=== PATIENT | female | born 1970 | race Caucasian/White ===

== ENCOUNTER → 2020-04-10 07:40 | Outpatient (CLI) | payer OTHER, SELFPAY ==
--- NOTE | ~2020-04-10 | US_ITS ---
EXAMINATION: US right upper quadrant DATE: 04/10/2020 08:03 INDICATION: Right upper quadrant abdominal pain. TECHNIQUE: Multiple grayscale and Doppler ultrasound images of the abdomen were obtained. COMPARISON: Ultrasound 06/28/2013 FINDINGS: Abdominal aorta is normal in caliber. Inferior vena cava is normal. The visualized portions of the head and body of the pancreas are normal. The liver is normal without focal lesion. No liver surface nodularity. There is normal flow in main portal vein. The gallbladder is normal in size and c ontains sludge. No gallstones or gallbladder wall thickening. There is no sonographic Robert sign. Th e common duct is normal and measures 5 mm. Right kidney is normal. IMPRESSION: 1. Gallbladder sludge. No evidence of acute cholecystitis. Reviewed, dictated and finalized at location A. LIANCE ANALYST
== END ==
PROVIDERS: PCP Nurse Practitioner Family; Visit Provider Nurse Practitioner Family
DX: R10.11 Right upper quadrant pain (principal)
CPT/HCPCS: 76705

== ENCOUNTER 2021-07-11 01:52 | Day surgery (SDC) | payer OTHER, SELFPAY ==
[2021-06-29 14:26] VITALS: BMI 27.0
--- NOTE | 2021-07-09 12:21 | WPDANESEPPF ---
Anes - Initial Pre Proc Eval Procedure: Operation Date: 07/11/21 09:30 Proposed Procedures p Screening Colonoscopy - Sharif Wallace MD Date/Time: 07/09/21 12:21 Surgeon: Sharif Wallace MD Pre Op Diagnosis: hx of colon polyps Patient Data Age: 51 Gender: F Height: 1.65 m Weight: 73.6 kg Allergies Allergy/AdvReac Type Severity Reaction Status Date / Time No Known Allergies Allergy Verified 07/11/21 08:42 Home Medications Medication Instructions Recorded Confirmed Type citalopram 20 mg PO DAILY 06/29/21 07/11/21 History Patient hx anesthesia problems: none Family hx anesthesia problems: none Results Review: All pre-operative results and documents have been reviewed as part of the pre-operative evaluation. [facility] Past Medical History Medical History (Updated 07/09/21 @ 12:22 by Jarvis Tang DO) Anxiety Asthma Depression BERNICE (obstructive sleep apnea) Surgical History Surgical History (Updated 07/09/21 @ 12:22 by Jarvis Tang DO) History of cholecystectomy Social History Social History Smoking status: Never smoker Alcohol intake: current Drinks per week: 3 Alcohol use details: wine Substance use: never Substance use type: does not use Living arrangements: with family Spiritual care concerns: No Anes - Eval Final PreProcedure Day of Procedure 07/09/21 12:21 Patient weight: overweight Heart: regular rate and rhythm Lungs: clear to auscultation and normal air movement Airway: Mallampati scale class II Neurological: alert and oriented Last oral intake: >/= 8 hours ASA classification: III Emergent: no Anesthetic plan: proceed Anesthesia type and monitoring: general GIVS and standard monitoring Results Review: All pre-operative results and documents have been reviewed as part of the pre-operative evaluation. Informed Consent: The patient's anesthetic plan and its attendant risks and benefits were discussed with the patient/family/POA. Questions were solicited and answers provided to the satisfaction of the patient/family/POA.
[2021-07-11 08:43] VITALS: BP 125/64; PULSE 80; RESP 16; TEMP 36.4; O2SAT 100
[2021-07-11] MEDS: LACTATED RINGERS 1,000 ML 150 ML IV CONT (08:54)
--- NOTE | 2021-07-11 09:02 | PM.HPGS ---
History of Present Illness History of Present Illness Consent: Risks, benefits, and alternatives have been discussed and questions answered. Patient agrees to proceed with procedure. Chief complaint: hx of colon polyps Narrative: Lorraine Maurer is a 51 year old female referred for colon cancer screening. She has a history of polyps having 3 polyps removed about 4 years ago Review of Systems Review of Systems: All systems reviewed & are unremarkable except as noted in HPI and below PMFSH Past Medical History Medical History Anxiety Asthma Depression BERNICE (obstructive sleep apnea) Surgical History Surgical History History of cholecystectomy Social History Social History Smoking status: Never smoker Alcohol intake: current Drinks per week: 3 Alcohol use details: wine Substance use: never Substance use type: does not use Living arrangements: with family Spiritual care concerns: No Meds Home Medications and Allergies Home Medications Medication Instructions Recorded Confirmed Type citalopram 20 mg PO DAILY 06/29/21 07/11/21 History Allergies Allergy/AdvReac Type Severity Reaction Status Date / Time No Known Allergies Allergy Verified 07/11/21 08:42 Vital Signs Vital Signs - 24 hr 07/11/21 08:43 Temperature 36.4 C L Pulse Rate 80 Respiratory Rate 16 Blood Pressure 125/64 Pulse Oximetry 100 Exam Resp: Auscultation: clear to auscultation bilaterally Cardio: Rate: regular rate Rhythm: regular rhythm GI: GI Palp: Yes Soft to palpation and No Tenderness to palpation present (GI) Assessment and Plan Assessment and plan (1) Colon cancer screening: Code(s): Z12.11 - Encounter for screening for malignant neoplasm of colon Status: Acute Assessment and Plan: Colonoscopy with possible biopsy or polypectomy or cautery or injection of substances.
[2021-07-11] MEDS: SIMETHICONE ORAL SUSPENSION 20 MG/0.3 ML 30 ML BOTTLE 0.6 ML IRRIGATION (09:35)
[2021-07-11 09:44] VITALS: BP 87/48; PULSE 74; RESP 16; O2SAT 99
[2021-07-11 09:54] VITALS: BP 94/61; PULSE 72; RESP 16; O2SAT 100
[2021-07-11 10:04] VITALS: BP 107/67; PULSE 77; RESP 16; O2SAT 100
== END 2021-07-11 10:13 | disposition home or self-care (01) ==
PROVIDERS: PCP Nurse Practitioner Family; Visit Provider Internal Medicine Gastroenterology
PROC: 0DJD8ZZ Inspection of Lower Intestinal Tract, Via Natural or Artificial Opening Endoscopic (ICD-10-PCS; CPT 45378; principal; 2021-07-11 09:30)
DX: Z12.11 Encounter for screening for malignant neoplasm of colon (principal); K64.8 Other hemorrhoids; Z86.010 Personal history of colon polyps; F41.8 Other specified anxiety disorders
CPT/HCPCS: 45378; J2704; J7120

== ENCOUNTER 2022-06-06 09:05 | Emergency (ER) | payer OTHER, SELFPAY ==
--- NOTE | ~2022-06-06 | CT_ITS ---
EXAMINATION: CT abdomen pelvis w con DATE: 06/06/2022 10:46 INDICATION: Right lower quadrant abdominal pain for one week TECHNIQUE: Computed tomography (CT) of the abdomen and pelvis was performed with 100 CC Omnipaque 350 intravenous contrast. Automated exposure control and iterative reconstruction technique were employe d. Exam dose: 529.20 mGy-cm total exam DLP. COMPARISON: None. FINDINGS: The lung bases are clear. Normal heart size. No pericardial or pleural effusion. Approximately 7.5 mm subcapsular focal area of hypoattenuation at the anterior margin of the medial s egment of the left hepatic lobe (series 3 image 28), possibly a small area of fatty change or small c yst, likely benign. No other hepatic space-occupying mass lesion is detected. Normal splenic size. Th e gallbladder is absent. No bile duct dilatation. No pancreatic mass lesion or calcification or pancr eatic duct dilatation. Normal morphology of the adrenal glands. Pinpoint nonobstructing mid right renal calculus. Probable several millimeter posterior mid left marika l cyst. No ureteral calculus or hydroureteronephrosis is noted on either side. Enlarged fibroid uterus. The uterus, adnexal areas and urinary bladder are otherwise unremarkable. Normal caliber of the abdominal aorta. No intraperitoneal or retroperitoneal or pelvic mass lesion or adenopathy or ascites. There is no evidence of appendicitis. There is a very prominent of fecal material in the rectosigmoid area. No bowel obstruction, bowel wall thickening, pneumatosis or intraperitoneal free air is detect ed. Included skeletal structures are unremarkable. IMPRESSION: Prominent amount fecal material rectosigmoid area No evidence of appendicitis or bowel obstruction or intraperitoneal free air Enlarged fibroid uterus Reviewed, dictated and finalized at Location [facility]. Reviewed, dictated and finalized at location A. OLITHOGRAPHIC STRIPPER
[2022-06-06 09:14] VITALS: BP 146/83; PULSE 79; RESP 16; TEMP 36.7; O2SAT 100
--- NOTE | 2022-06-06 09:27 | ED.BACK ---
HPI - Back Pain/Injury General Chief Complaint: Back Pain/Injury Stated Complaint: ?kidney stone Time Seen by Provider: 06/06/22 09:10 Source: patient and RN notes reviewed Mode of arrival: ambulatory Limitations: no limitations History of Present Illness HPI Narrative: This is a 52-year-old female that presents to the emergency department for right-sided abdominal pain. Ongoing over the last week. The pain is worse with certain movements. It is a dull, achy pain. She has been taking Motrin for pain with some relief. Also reports urinary frequency. Denies fever, vomiting, diarrhea, or hematuria. Related Data Home Medications Medication Instructions Recorded Confirmed citalopram 20 mg tablet 20 mg PO DAILY 06/29/21 07/11/21 Allergies Allergy/AdvReac Type Severity Reaction Status Date / Time No Known Allergies Allergy Verified 07/11/21 08:42 Review of Systems Review of Systems: CONSTITUTIONAL: Denies fever GASTROINTESTINAL: Reports abdominal pain. Denies nausea, vomiting, or diarrhea. GENITOURINARY: Denies dysuria or hematuria. All systems reviewed & are unremarkable except as noted in HPI and below PMFSH Past Medical History Medical History Anxiety Asthma Depression BERNICE (obstructive sleep apnea) Surgical History Surgical History History of cholecystectomy Social History Social History Smoking status: Never smoker Alcohol intake: current Drinks per week: 3 Alcohol use details: wine Substance use: never Substance use type: does not use Living arrangements: with family Spiritual care concerns: No Exam Narrative: GENERAL: Well-appearing, well-nourished, and in no acute distress. HEAD: Normocephalic, atraumatic. EYES: EOMI. ENT: Mucous membranes moist. Oropharynx without tonsillar hypertrophy exudate or other lesions. CHEST: Clear to auscultation. No respiratory distress. No wheezes rales or rhonchi HEART: Regular rate and rhythm. No murmur heard. Normal peripheral pulses. ABDOMEN: Soft, nondistended, normal active bowel sounds. Mild tenderness to palpation throughout the right lower abdomen, without guarding. No CVA tenderness EXTREMITIES: Normal range of motion. No edema. SKIN: Warm, dry, no rash. NEURO: No focal deficits. Alert and oriented x3. PSYCH: Normal mood and affect Course Course Emergency Course: Patient updated on work-up and agrees with plan of care Vital Signs Vital signs: Vital Signs Temperature 98.0 F 06/06/22 09:14 Pulse Rate 79 06/06/22 09:14 Respiratory Rate 16 06/06/22 09:14 Blood Pressure 146/83 H 06/06/22 09:14 Pulse Oximetry 100 06/06/22 09:14 Temperature 98.0 F 06/06/22 09:14 Pulse Rate 79 06/06/22 09:14 Respiratory Rate 16 06/06/22 09:14 Blood Pressure 146/83 H 06/06/22 09:14 Pulse Oximetry 100 06/06/22 09:14 MDM - Back Pain/Injury MDM Narrative Medical decision making narrative: Patient presents emergency department for right-sided abdominal pain ongoing over the last week. Associated with some urinary frequency. She is afebrile and nontoxic-appearing. Her vitals are stable. CBC is without leukocytosis. Does show microcytic anemia with hemoglobin of 8.3. Metabolic panel without concerning findings. UA with evidence of infection. This will be sent for culture. Bedside test is negative. CT scan of the abdomen and pelvis is without acute findings. Does show some evidence of constipation. Also an enlarged, fibroid uterus. Could be contributing to her anemia. It does look like she has intermittently ran low in the past looking at her old records. Patient was updated on work-up. Agrees with plan of care. Instructed she should have some close follow-up with her primary provider. Will be started on oral antibiotics. She was given warmadison
[2022-06-06 09:42] LABS: Basophils Percent Auto 0.9 % (0.2-1.2); Eosinophils Absolute Auto 0.1 K/mm3 (0-0.3); Eosinophils Percent Auto 3.1 % (0-4.4); Hematocrit 29.4 % (37.0-47.0); Hemoglobin 8.3 g/dL (12.0-15.0); Immature Granulocyte Absolute 0.01 K/mm3 (0.00-0.031); Immature Granulocyte Percent A 0.3 % (0-0.5); Mean Corpuscular HGB Conc 28.2 g/dl (32-36); Mean Corpuscular Hemoglobin 20.1 pg (26-34); Mean Corpuscular Volume 71.2 fl (80-100); Mean Platelet Volume 11.1 fl (7.4-10.4); Monocytes Absolute Auto 0.3 K/mm3 (0.1-0.6); Monocytes Percent Auto 9.3 % (2.6-8.5); Neutrophils Absolute Auto 1.7 K/mm3 (1.3-6.7); Neutrophils Percent Auto 52.4 % (45.5-73.1); Platelet Count Result 228 k/mm3 (150-375); Red Blood Count 4.13 M/mm3 (4.2-5.4); Red Cell Distribution Width 17.5 % (11.5-14.5); White Blood Count 3.2 K/mm3 (4.5-10.0)
[2022-06-06 09:42] LABS: Appearance Urine Clear (Clear); Bilirubin Urine Negative (Negative); Blood Urine Negative (Negative); Color Urine Yellow (Yellow); Glucose Urine UA Negative (Negative); Ketones Urine Negative (Negative); Leukocyte Esterase Ur 3+ LEU/UL (Negative); Nitrate Urine Negative (Negative); Protein Urine Negative (Negative); Specific Grav Ur 1.015 (1.001-1.035); Urobilinogen Urine 0.2 mg/dL (<2.0)
[2022-06-06 09:53] LABS: Anisocytosis 1+ (NORMAL); Hypochromasia 1+ (NORMAL); Ovalocytes 1+ (NORMAL); Platelet Estimate Adequate (Adequate)
[2022-06-06 09:54] LABS: Schistocytes None Seen (NORMAL)
[2022-06-06 09:55] LABS: Alanine Aminotransferase 16 U/L (6-35); Alkaline Phosphatase 77 U/L (38-126); Anion Gap 8 mmol/L (8-16); Aspartate Amino Transferase 26 U/L (14-36); Bilirubin,Total 0.4 mg/dL (0.2-1.3); Blood Urea Nitrogen 16 mg/dL (7-17); Calcium 9.4 mg/dL (8.4-10.2); Carbon Dioxide 28 mmol/L (22-30); Chloride 103 mmol/L (98-107); Estimated CRCL calculation 66 ml/min; Estimated Glomerular Filt Rate > 60; Glucose 99 mg/dL (65-110); Potassium 4.6 mmol/L (3.4-5.0); Sodium 139 mmol/L (137-145)
[2022-06-06 09:56] LABS: Mucus Urine Rare /lpf; RBC Urine 0-2 /hpf (0-2); Squamous Epithelial Cell Urine Occasional /hpf (Few); WBC Urine 21-30 /hpf
[2022-06-06 10:00] LABS: Add Urine Microscopic? YES
[2022-06-06 11:27] VITALS: BP 140/74; PULSE 71; RESP 14; O2SAT 100
== END 2022-06-06 11:27 | disposition home or self-care (01) ==
PROVIDERS: Emergency Provider Physician Assistant; PCP Nurse Practitioner Family
DX: N39.0 Urinary tract infection, site not specified (principal); D64.9 Anemia, unspecified; J45.909 Unspecified asthma, uncomplicated; F41.9 Anxiety disorder, unspecified; F32.A Depression, unspecified; G47.33 Obstructive sleep apnea (adult) (pediatric)
CPT/HCPCS: 36415; 74177; 80053; 81001; 81025; 85025; 87086; 87088; 96365; 99284; J0696; Q9967

== ENCOUNTER 2022-06-30 09:50 | Emergency (ER) | payer OTHER, SELFPAY ==
--- NOTE | 2022-06-30 09:53 | ED.URI ---
HPI - URI/Sore Throat General Chief Complaint: Upper Respiratory Infection Stated Complaint: sinus pressure,chest congestion Time Seen by Provider: 06/30/22 10:00 Source: patient, RN notes reviewed and old records reviewed Mode of arrival: ambulatory Limitations: no limitations History of Present Illness HPI Narrative: 52-year-old female presents to the [facility] with complaints of sinus congestion and chest congestion for 3 days. Took it at home COVID test which she reports is negative. Reports taking a hot shower which helps with her symptoms took NyQuil last night Onset (ago): day(s) (3) Related Data Home Medications Medication Instructions Recorded Confirmed citalopram 20 mg tablet 20 mg PO DAILY 06/29/21 06/30/22 Allergies Allergy/AdvReac Type Severity Reaction Status Date / Time No Known Allergies Allergy Verified 06/30/22 09:53 Review of Systems Review of Systems: All systems reviewed & are unremarkable except as noted in HPI and below Constitutional: Constitutional: Reports no additional constitutional complaints Eyes: Eyes: Reports no additional eye complaints ENT: Reports as per HPI and Reports nasal congestion Cardiovascular: Cardiovascular: Reports no additional cardiovascular complaints, Denies chest pain and Denies dyspnea Respiratory: Respiratory: Reports as per HPI, Reports chest congestion, Denies cough and Denies dyspnea Gastrointestinal: Gastrointestinal: Reports no additional gastrointestinal complaints, Denies abdominal pain, Denies nausea and Denies vomiting Musculoskeletal: Musculoskeletal: Reports no additional musculoskeletal complaints Integumentary/Breasts: Skin/Breast: Reports system reviewed and no additional complaints, except as docu Neurologic: Reports system reviewed and no additional complaints, except as documented Psychiatric: Psychiatric: Reports no additional psychiatric complaints Allergic/Immunologic: Allergic/Immunologic: Reports no additional allergic/immunologic complaints [facility] Past Medical History Medical History Anxiety Asthma Depression BERNICE (obstructive sleep apnea) Surgical History Surgical History History of cholecystectomy Social History Social History Smoking status: Never smoker Alcohol intake: current Drinks per week: 3 Alcohol use details: wine Substance use: never Substance use type: does not use Living arrangements: with family Spiritual care concerns: No Comments At the time of my signature, I reviewed and agree with the nursing past medical, surgical, social, and family history. There is no relevant family history pertinent to the patient complaint. Exam Const: General: cooperative, healthy appearing, comfortable, no acute distress, well developed, alert and well nourished Nutritional Appearance: well nourished Orientation/consciousness: patient oriented x3 Limitations: no limitations HENMT: Head: normal to inspection Ears: hearing grossly normal bilaterally, external ears normal, TM normal on the left, EAC's normal, mastoids normal, no periauricular adenopathy and TM abnormal wth effusion serous on the right Face/Nose/Sinus: Normal external nose present, Normal nares present, Normal nasal mucous membranes and turbinates present and normal facial exam Face and sinus: normal facial exam, sinuses nontender and face symmetric Mouth: Yes Normal oral and palatal mucosa present, Yes lip normal and Yes moist mucous membranes Throat: posterior oropharynx normal, tonsils normal, uvula midline and postnasal drainage Eyes: General: appearance normal, both eyes and all related structures Alignment and Position: alignment normal Periorbital: periorbital findings normal Conjunctivae: conjunctivae normal Pupils: Equal, round and reactive pupils present EOM: EO
[2022-06-30 10:00] VITALS: BP 149/76; PULSE 79; RESP 16; TEMP 36.2; O2SAT 100
== END 2022-06-30 10:13 | disposition home or self-care (01) ==
PROVIDERS: Emergency Provider Nurse Practitioner; PCP Nurse Practitioner Family
DX: J06.9 Acute upper respiratory infection, unspecified (principal); H65.01 Acute serous otitis media, right ear
CPT/HCPCS: 99213; G0463